=== PATIENT | male | born 1980 | race Caucasian/White ===

== ENCOUNTER 2016-08-16 09:58 | Emergency (ER) | payer OTHER ==
[2016-08-16] MEDS ORDERED: ACETAMINOPHEN 325 MG TAB ONE (12:26)
[2016-08-16] MEDS ORDERED: PEN G BENZ 1.2M UNITS/2 ML SYR IM ONE (12:40)
== END 2016-08-16 13:22 | disposition home or self-care (01) ==
LOC: ER 09:58
CPT/HCPCS: 96372 ×2; 99283; J0561